=== PATIENT | female | born 1990 | race Caucasian/White ===

== ENCOUNTER 2017-12-21 12:26 | Emergency (ER) | payer MEDICAID, SELFPAY ==
[2017-12-21 12:31] VITALS: BP 128/87; PULSE 97; RESP 14; TEMP 36.7; O2SAT 100
--- NOTE | 2017-12-21 12:53 | DI.RAD_ITS ---
SYMPTOM/DIAGNOSIS: RIGHT SHOULDER INJURY RIGHT SHOULDER: 12/21 Five views were obtained. There is no evidence of a fracture or glenohumeral dislocation. There is a question of slight elevation of the clavicle from the acromion, correlation requested regarding a possibility of an A-C separation.
--- NOTE | 2017-12-21 14:01 | W.ED.GENAD ---
Discharge Plan Disposition Patient Disposition: HOME Condition: Good Discharge Details Chief Complaint: Orthopedic Clinical Impression: Acute pain of right shoulder due to trauma Primary Care Provider: Edenilson Boogie ED Provider: Michael Mercado Home Meds and New Rx's Prescriptions: Continue etonogestrel [Nexplanon] 68 MG implant 68 mg SQ ONCE Qty: 1 RF: 0 Discontinued metronidazole 500 MG tablet 500 mg PO BID Qty: 14 RF: 0 Discharge Instructions Instructions: Shoulder Pain (ED) Additional Instructions: Feel free to return to the emergency department as needed for new or worsening symptoms otherwise continue to take [id number]-[id number] pain medication as needed for discomfort and if not improving over the next couple weeks follow-up with orthopedist for reassessment Referrals: Vince Lema MD [ [facility] STAFF PHYSICIAN] - Andry Murray MD [ [facility] STAFF PHYSICIAN] - Faivo Champagne MD [ [facility] STAFF PHYSICIAN] - Discharge Data Discharge Date/Time-TO BE ENTERED AT DEPARTURE: 12/21/17 14:22 Medical Decision Making Patient presenting to the emergency department for complaint of right shoulder pain after fall. Patient reports that she fell 3 days ago and felt a popping sensation in her shoulder and has had pain since. Given that is not improved she is coming in for evaluation. Patient does have full range of motion of shoulder and tenderness to palpation of the proximal humerus. Radiological imaging was ordered for the shoulder and after review of imaging and speak with radiologist there is only a question of a mild AC joint separation but unsure if this is just normal patient anatomy. AC joint is not tender at all so doubt AC joint separation and more of shoulder sprain due to the fall. Patient was encouraged to use ibuprofen as needed for pain control and to follow-up with orthopedist if not improving over the next couple weeks. After discussion of diagnosis and plan of care patient has no further needs, questions, or concerns and states clear understanding to return to the emergency department for any worsening symptoms. HPI General Mode of arrival: ambulatory. Date/Time Provider Initiated Documentation: 12/21/17 12:52. Limitations to Documentation: no limitations. Information obtained by: patient. History of Present Illness 27 year old F presents to the emergency department with the chief complaint of Right shoulder pain after, described as moderate, with intensity rated at 5. Quality is described as aching, and is localized to the right and upper extremity. Patient started experiencing this day(s) (3) and it has been constant. No relieving factors improve symptom(s), Movement worsens symptoms . Patient notes no other symptoms.. Patient did receive the following treatments prior to arrival, none Related Data Home Medications Medication Instructions Recorded Confirmed etonogestrel [Nexplanon] 68 mg SQ ONCE #1 implant 05/29/17 Allergies Allergy/AdvReac Type Severity Reaction Status Date / Time No Known Allergies Allergy Unverified 11/04/17 14:41 General Stated Complaint: Orthopedic SYLVESTER: 4 Review of Systems Constitutional Denies body ache(s), Denies chills and Denies fever(s) Cardiovascular Denies chest pain and Denies dyspnea Respiratory Denies dyspnea Musculoskeletal Reports as per HPI and Reports arthralgias Integumentary/Breasts Denies rash Neurologic Denies confusion and Denies sensory deficit Psychiatric Denies confusion [facility] Family History Brother Alcohol abuse Mother Diabetes Father Essential hypertension Grandmother Breast cancer Maternal Aunt Breast cancer Medical History Abnormal Pap smear of cervix Nexplanon in place Social History Smoking/Tobacco Use Status: Former Tobacco Use Exam Const General: cooperative, no acute distress and not ill appearing Orientation: alert, awake and oriented x3 HENMT Mouth: moist mucous membranes Resp Effort & Inspection: normal respiratory effort, able to speak in complete sentences and no respiratory distress Auscultation: clear to auscultation bilaterally Cardio Rate: regular rate Rhythm: regular rhythm Heart Sounds: S1 normal and S2 normal Skin General skin exam: no rashes or lesions noted Neuro General: alert, awake, oriented x3, moves all extremities and no focal motor deficits Sensory Exam: no sensory deficits noted Extrem Right upper extremity: full ROM, normal capillary refill, shoulder/upper arm Details: tenderness Location: of the proximal humerus; not of the A-C joint, elbow/forearm Details: normal to inspection, wrist Details: normal to inspection and hand Details: normal to inspection Left upper extremity: normal to inspection Course Vital Signs Temperature 36.7 C 12/21/17 12:31 Pulse 97 H 12/21/17 12:31 Respiratory Rate 14 12/21/17 12:31 Blood Pressure 128/87 12/21/17 12:31 Pulse Oximetry 100 12/21/17 12:31 Temperature 36.7 C 12/21/17 12:31 Temperature Source Skin 12/21/17 12:31 Pulse 97 H 12/21/17 12:31 Respiratory Rate 14 12/21/17 12:31 Respiratory Effort 12/21/17 12:38 Blood Pressure 128/87 12/21/17 12:31 Blood Pressure Position Sitting 12/21/17 12:31 Pulse Oximetry 100 12/21/17 12:31 Oxygen Delivery Method Room Air 12/21/17 12:31 Oxygen Flow Rate 0 12/21/17 12:31 Pain Level 4 12/21/17 12:31 Comment 12/21/17 12:31 Lab/Test Results Lab/Test Results: POC- Test(urine) Negative
--- NOTE | 2017-12-21 14:04 | ED.GENADUL_ITS ---
Discharge Plan Disposition Patient Disposition: HOME Condition: Good Discharge Details Chief Complaint: Orthopedic Clinical Impression: Acute pain of right shoulder due to trauma Primary Care Provider: Edenilson Boogie ED Provider: Michael Mercado Home Meds and New Rx's Prescriptions: Continue etonogestrel [Nexplanon] 68 MG implant 68 mg SQ ONCE Qty: 1 RF: 0 Discontinued metronidazole 500 MG tablet 500 mg PO BID Qty: 14 RF: 0 Discharge Instructions Instructions: Shoulder Pain (ED) Additional Instructions: Feel free to return to the emergency department as needed for new or worsening symptoms otherwise continue to take [id number]-[id number] pain medication as needed for discomfort and if not improving over the next couple weeks follow-up with orthopedist for reassessment Referrals: Vince Lema MD [ [facility] STAFF PHYSICIAN] - Andry Murray MD [ [facility] STAFF PHYSICIAN] - Favio Champagne MD [ [facility] STAFF PHYSICIAN] - Discharge Data Discharge Date/Time-TO BE ENTERED AT DEPARTURE: 12/21/17 14:22 Medical Decision Making Patient presenting to the emergency department for complaint of right shoulder pain after fall. Patient reports that she fell 3 days ago and felt a popping sensation in her shoulder and has had pain since. Given that is not improved she is coming in for evaluation. Patient does have full range of motion of shoulder and tenderness to palpation of the proximal humerus. Radiological imaging was ordered for the shoulder and after review of imaging and speak with radiologist there is only a question of a mild AC joint separation but unsure if this is just normal patient anatomy. AC joint is not tender at all so doubt AC joint separation and more of shoulder sprain due to the fall. Patient was encouraged to use ibuprofen as needed for pain control and to follow-up with orthopedist if not improving over the next couple weeks. After discussion of diagnosis and plan of care patient has no further needs, questions, or concerns and states clear understanding to return to the emergency department for any worsening symptoms. HPI General Mode of arrival: ambulatory . Date/Time Provider Initiated Documentation: 12/21/17 12:52 . Limitations to Documentation: no limitations . Information obtained by: patient . History of Present Illness 27 year old F presents to the emergency department with the chief complaint of Right shoulder pain after, described as moderate, with intensity rated at 5. Quality is described as aching, and is localized to the right and upper extremity. Patient started experiencing this day(s) (3) and it has been constant. No relieving factors improve symptom(s), Movement worsens symptoms . Patient notes no other symptoms.. Patient did receive the following treatments prior to arrival, none Related Data Home Medications Medication Instructions Recorded Confirmed etonogestrel [Nexplanon] 68 mg SQ ONCE #1 implant 05/29/17 Allergies Allergy/AdvReac Type Severity Reaction Status Date / Time No Known Allergies Allergy Unverified 11/04/17 14:41 General Stated Complaint: Orthopedic SYLVESTER: 4 Review of Systems Constitutional Denies body ache(s), Denies chills and Denies fever(s) Cardiovascular Denies chest pain and Denies dyspnea Respiratory Denies dyspnea Musculoskeletal Reports as per HPI and Reports arthralgias Integumentary/Breasts Denies rash Neurologic Denies confusion and Denies sensory deficit Psychiatric Denies confusion [facility] Family History Brother Alcohol abuse Mother Diabetes Father Essential hypertension Grandmother Breast cancer Maternal Aunt Breast cancer Medical History Abnormal Pap smear of cervix Nexplanon in place Social History Smoking/Tobacco Use Status: Former Tobacco Use Exam Const General: cooperative, no acute distress and not ill appearing Orientation: alert, awake and oriented x3 HENMT Mouth: moist mucous membranes Resp Effort & Inspection: normal respiratory effort, able to speak in complete sentences and no respiratory distress Auscultation: clear to auscultation bilaterally Cardio Rate: regular rate Rhythm: regular rhythm Heart Sounds: S1 normal and S2 normal Skin General skin exam: no rashes or lesions noted Neuro General: alert, awake, oriented x3, moves all extremities and no focal motor deficits Sensory Exam: no sensory deficits noted Extrem Right upper extremity: full ROM, normal capillary refill, shoulder/upper arm Details: tenderness Location: of the proximal humerus; not of the A-C joint, elbow/forearm Details: normal to inspection, wrist Details: normal to inspection and hand Details: normal to inspection Left upper extremity: normal to inspection Course Vital Signs Temperature 36.7 C 12/21/17 12:31 Pulse 97 H 12/21/17 12:31 Respiratory Rate 14 12/21/17 12:31 Blood Pressure 128/87 12/21/17 12:31 Pulse Oximetry 100 12/21/17 12:31 Temperature 36.7 C 12/21/17 12:31 Temperature Source Skin 12/21/17 12:31 Pulse 97 H 12/21/17 12:31 Respiratory Rate 14 12/21/17 12:31 Respiratory Effort 12/21/17 12:38 Blood Pressure 128/87 12/21/17 12:31 Blood Pressure Position Sitting 12/21/17 12:31 Pulse Oximetry 100 12/21/17 12:31 Oxygen Delivery Method Room Air 12/21/17 12:31 Oxygen Flow Rate 0 12/21/17 12:31 Pain Level 4 12/21/17 12:31 Comment 12/21/17 12:31 Lab/Test Results Lab/Test Results: POC- Test(urine) Negative
== END 2017-12-21 14:22 | disposition home or self-care (01) ==
PROVIDERS: Emergency Provider Nurse Practitioner Family; PCP Specialist/Technologist Athletic Trainer
DX: M25.511 Pain in right shoulder (principal); W01.0XXA Fall on same level from slipping, tripping and stumbling without subsequent striking against object, initial encounter
CPT/HCPCS: 81025; 99283; 73030; 99282

== ENCOUNTER 2018-11-18 11:41 | Outpatient (REF) | payer MEDICAID, SELFPAY ==
[2018-11-20 11:30] LABS: Lyme Ab w Rflx to Lyme Confirm Negative
[2018-11-21 21:34] LABS: Anaplasma phagocytophilum Negative (Negative); B. miyamotoi PCR Negative (Negative); Babesia divergens/MO-1 Negative (Negative); Babesia duncani Negative (Negative); Babesia microti Negative (Negative); Ehrlichia chaffeensis Negative (Negative); Ehrlichia ewingii/canis Negative (Negative); Ehrlichia muris eauclairensis Negative (Negative)
== END 2018-11-18 12:01 ==
LOC: NCHCN 11:41
PROVIDERS: PCP Specialist/Technologist Athletic Trainer; Visit Provider Physician Assistant Medical
DX: M79.10 Myalgia, unspecified site (principal)
CPT/HCPCS: 87798; 86618

== ENCOUNTER 2019-08-18 11:52 | Outpatient (CLI) | payer MEDICAID, SELFPAY ==
[2019-08-18 12:03] LABS: Kit/Specimen SENT
[2019-08-18 13:16] LABS: Abs Immature Grans 0.02 k/cumm (0.0-0.09); Absolute Basophil Count 0.02 k/cumm (0.0-0.2); Absolute Eosinophil Count 0.11 k/cumm (0.0-0.7); Absolute Lymphocyte Count 1.81 k/cumm (1.2-3.4); Absolute Monocyte Count 0.45 k/cumm (0.11-0.7); Absolute Neutrophil Count 7.31 k/cumm (1.2-6.7); Basophils % 0.2; Eosinophils % 1.1; HCT 34.1 % (36.0-46.0); HGB 11.5 g/dL (12.0-15.5); Immature Grans % 0.2 %; Lymphocytes % 18.6; Mean Corp. HGB Concentration 33.7 g/dL (32.0-36.0); Mean Corpuscular Volume 91.9 fL (80-95); Mean Platelet Volume 10.6 fL (8.0-11.0); Monocytes % 4.6; Neutrophils % 75.3; Platelet Count 328 x1000/uL (130-400); RBC 3.71 m/cumm (4.00-5.20); RBC Distribution Width 12.9 % (11.7-14.6); White Blood Cell Count 9.72 k/cumm (4.4-10.8)
[2019-08-18 13:36] LABS: TSH (W/Ref FT4) 0.32 uIU/mL (0.36-3.74)
[2019-08-18 13:54] LABS: FREE T4 1.04 ng/dL (0.76-1.46)
[2019-08-19 11:15] LABS: Hepatitis C Ab w Rflx HCV PCR Negative (Negative)
[2019-08-19 11:17] LABS: Hepatitis B Surface Ag Negative (Negative)
[2019-08-19 11:18] LABS: HIV-1/2 Ag & Ab Screen Negative (Negative)
[2019-08-19 11:19] LABS: Rubella IgG Ab (UVM) Positive (See Note); Varicella IgG Antibody Positive (See Note)
[2019-08-20 11:18] LABS: Syphilis Total Ab w/Reflex Nonreactive (Nonreactive)
== END 2019-08-18 12:12 ==
PROVIDERS: PCP Specialist/Technologist Athletic Trainer; Visit Provider Advanced Practice Midwife
DX: Z34.91 Encounter for supervision of normal pregnancy, unspecified, first trimester (principal); Z3A.14 14 weeks gestation of pregnancy; Z36.89 Encounter for other specified antenatal screening
CPT/HCPCS: 86787; 86803; 86850; 86900; 86901; 87340; 87389; 84439; 84443; 85025; 86762; 86780

== ENCOUNTER 2019-08-18 11:56 | Outpatient (REF) | payer MEDICAID, SELFPAY ==
--- NOTE | 2019-08-18 10:40 | PAPFT_PTH ---
PATIENT: Martha Pinto LOC: [facility] U#:[id number] AGE/SX: 28/F ROOM: RE08/18/[address]: Vivi Gil CNM : 1990 BED: DIS: 08/18/2019 SPEC #: [id number] RECD: 08/18/19 12:57 STATUS: HOWARD RELakshmi #: [id number] LEMUEL: 08/18/19 10:[address]: Vivi Gil DEPT: [facility] Cytology RECD BY: Jhoana Gray ENTERED: 08/18/19 12:58 SP TYPE: PAPFT OTHR DR: Edenilson Boogie Tissues: 1 - CX/ENDOCX FOR PAP SMEARS Procedures: PAP THIN PREP/UVM Screening Comments: [id number]
[2019-08-18 14:28] LABS: *AMPHETAMINES SCREEN URINE Negative (Negative); *BARBITURATES SCREEN URINE Negative (Negative); *BENZODIAZEPINES SCREEN URINE Negative (Negative); Cannabinoids THC Negative (Negative); Cocaine Screen,Urine Negative (Negative); METHADONE URINE SCREEN Negative (Negative); OPIATES URINE SCREEN Negative (Negative)
[2019-08-18 14:29] LABS: Tricyclic Antidepressants Negative (Negative)
[2019-08-19 15:04] LABS: Chlamydia Result Negative (Negative); GC Result Negative (Negative)
[2019-08-25 11:49] LABS: Buprenorphine Negative; Norbuprenorphine Negative
== END 2019-08-18 12:16 ==
LOC: LBN 11:56
PROVIDERS: PCP Specialist/Technologist Athletic Trainer; Visit Provider Advanced Practice Midwife
DX: Z34.91 Encounter for supervision of normal pregnancy, unspecified, first trimester (principal); Z3A.14 14 weeks gestation of pregnancy; Z11.3 Encounter for screening for infections with a predominantly sexual mode of transmission; Z12.4 Encounter for screening for malignant neoplasm of cervix; Z11.51 Encounter for screening for human papillomavirus (HPV)
CPT/HCPCS: 80307; 87491; 87591; 88142; 87086

== ENCOUNTER 2019-09-16 01:40 | Outpatient (CLI) | payer MEDICAID, SELFPAY ==
--- NOTE | 2019-09-16 13:00 | DI.US_ITS ---
EXAM: US OB 2-3 TRIMESTER CLINICAL HISTORY: 18 wk anatomy survey,z3a.14 TECHNIQUE: Ultrasound performed using standard protocol. COMPARISON: US OB US 2-3 TRIMESTER TRANSABD*P from 05/03/2015 FINDINGS: Ob ultrasound was performed utilizing 2nd trimester protocol. biometry is consistent with gest ational age of 18 weeks 3 days and EDC of February 13. Placenta is posterior with no evidence of p lacenta previa. There is visually a normal quantity of amniotic fluid. anomaly screen is within normal limits as per the attached checklist. heart rate is 155 BPM. IMPRESSION: DATA REPOSITORY:
== END 2019-09-16 02:00 ==
PROVIDERS: PCP Physician Assistant Medical; Visit Provider Advanced Practice Midwife
DX: Z34.92 Encounter for supervision of normal pregnancy, unspecified, second trimester (principal); Z3A.18 18 weeks gestation of pregnancy
CPT/HCPCS: 76805

== ENCOUNTER 2019-11-23 11:30 | Outpatient (CLI) | payer MEDICAID, SELFPAY ==
--- NOTE | 2019-11-26 12:00 | DI.US_ITS ---
EXAM: US LOWER EXTREMITY VENOUS LT CLINICAL HISTORY: superficial varicosities homans neg yet sore. r/o dvt, Z34.90 SUPERVISION TECHNIQUE: Left lower extremity venous ultrasound performed using grayscale, color-flow, and spectra l Doppler analysis. COMPARISON: No exams were available for comparison FINDINGS: The left common femoral, femoral and popliteal veins demonstrate normal compressibility, augmentation , and color Doppler. The posterior tibial veins are patent. The saphenofemoral junction is unremarka ble. There is no evidence of a Glover cyst. The soft tissues are unremarkable. Multiple superficial varicosities in the proximal left calf. These all demonstrate compressibility and color flow. IMPRESSION: No DVT. DATA REPOSITORY:
== END 2019-11-23 11:50 ==
PROVIDERS: PCP Physician Assistant Medical; Visit Provider Advanced Practice Midwife
DX: I83.92 Asymptomatic varicose veins of left lower extremity (principal); Z34.90 Encounter for supervision of normal pregnancy, unspecified, unspecified trimester
CPT/HCPCS: 93971

== ENCOUNTER 2019-11-26 01:46 | Outpatient (CLI) | payer MEDICAID, SELFPAY ==
[2019-11-26 11:45] LABS: Glucose,1 Hr (Glucola) 120 mg/dL (80-140)
[2019-11-26 11:46] LABS: HCT 32.2 % (36.0-46.0); HGB 10.7 g/dL (11.2-15.7); MCHC 33.2 % (32.0-36.0); MCV 93.3 fL (80-95); MPV 10.3 fL (8.0-11.0); Platelet Count 273 10^3/uL (130-400); RBC 3.45 10^6/uL (3.93-5.22); RDW-SD 44.3 fL; WBC 9.82 10^3/uL (4.4-10.8)
== END 2019-11-26 02:06 ==
PROVIDERS: PCP Physician Assistant Medical; Visit Provider Advanced Practice Midwife
DX: Z67.91 Unspecified blood type, Rh negative (principal); Z34.90 Encounter for supervision of normal pregnancy, unspecified, unspecified trimester; O26.899 Other specified pregnancy related conditions, unspecified trimester
CPT/HCPCS: 36415; 82950; 85027; 86850; 90384

== ENCOUNTER 2020-01-26 15:54 | Outpatient (REF) | payer MEDICAID, SELFPAY ==
[2020-01-26 22:04] LABS: *AMPHETAMINES SCREEN URINE Negative (Negative); *BARBITURATES SCREEN URINE Negative (Negative); *BENZODIAZEPINES SCREEN URINE Negative (Negative); Cannabinoids THC POSITIVE (Negative); Cocaine Screen,Urine Negative (Negative); METHADONE URINE SCREEN Negative (Negative); OPIATES URINE SCREEN Negative (Negative)
[2020-01-26 22:05] LABS: Tricyclic Antidepressants Negative (Negative)
[2020-02-03 11:47] LABS: Buprenorphine Negative; Norbuprenorphine Negative
== END 2020-01-26 16:14 ==
LOC: LBN 15:54
PROVIDERS: PCP Physician Assistant Medical; Visit Provider Advanced Practice Midwife
DX: Z34.93 Encounter for supervision of normal pregnancy, unspecified, third trimester (principal)
CPT/HCPCS: 80307; 80338; 87081

== ENCOUNTER 2020-02-14 07:01 | Inpatient (IN) | payer MEDICAID, SELFPAY ==
[2020-02-14] VITALS (11 sets, daily range): BP systolic 119–137; BP diastolic 58–93; PULSE 66–87; RESP 14–16; TEMP 37.1–37.4; O2SAT 98
--- NOTE | 2020-02-14 08:43 | HPE_ITS ---
Date of service: 02/14/20 Time of Service: 08:46 Assessment and Plan Assessment and plan (1) Spontaneous onset of labor: Status: Acute Assessment and plan: Admit to [facility] Dr. John was called as I was en route and she was fully dilated. He ruptured her membranes prior to my arrival. Martha was repositioned on her right side. Anticipate imminent delivery. Covid- 19 test. Anticipate . OB-HPI Labor/Delivery History of Present Illness Reason for Visit: TERM LABOR RULE OUT Chief Complaint: Uterine Contractions. GAGE Calculator Estimated Delivery Date Method Current WG Current Estimate 02/16/20 Ultrasound #1 39w 5d Other Estimates 02/22/20 LMP (Certain) 38w 6d Comments: Strong regular contractions at home. presents in active labor and fully dilated with bulging membranes. History of Present Expected Delivery Route/Plan - CNM FOB/boyfriend - Tal Huff (2nd child together, has 1 other son) BG GBS Negative Would like to try to deliver in the tub. Specific Issues/Plan 1. Desires Froid, drawn 08/17 1a. 08/25/19 Froid risk low x3 declined gender. Enc to decide upon afp by nv. al 2. Known CF carrier screen negative 3. Hx LEEP 2015, last PAP 2017 ASCUS w/BV+, HPV neg, PAP done at intial OB 08/17 4. 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 Chronic tail-bone pain 6. Rh neg, RhoGam @ 28 wks done 11/26/19 7. 01/07/20: met with l/c prior to this visit. al 8. Usg for r/o DVT of l leg neg. al 9. History of marijuana use - POSC done 02/01 10. Smoker - quit early . 11. heart burn - prilosec escribed 02/01 [facility] Medical History Abnormal Pap smear of cervix 03/05/16 ASCUS - cannot r/o HGSIL. 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 04/26/16 LEEP: CIN2 clear margins. 05/2017. ASCUS. Neg HPV. rpt pap in 2020. Contraception Stopped Nexplanon 04/25 BTB. 10/2018 NuvaRing. Marijuana use Tobacco use 1Pack/week. Family History Brother Alcohol abuse Mother Diabetes Father Essential hypertension Grandmother Breast cancer Maternal Aunt Breast cancer Social History (Updated 11/06/18 @ 20:42 by Destiny Banerjee MD) Smoking/Tobacco Use Status: Current every day Tobacco Type: cigarettes Quit status: has quit before Smoking risk assessment performed?: Yes Alcohol Intake: current Alcohol Intake frequency: 0-2 drinks per day Alcohol type: beer Counseling given: Yes (Reviewed current recommendations regarding limits of alcohol for women) Details: Patient does not feel that she has an issue with alcohol. 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 8lb 9oz. History History 2 Para 1 Hx # Term Pregnancies 1 Multiple births 0 Hx # Pregnancies 0 Ectopic pregnancies 0 AB induced 0 Hx Number of Living Children 1 AB spontaneous 0 Past Pregnancies Del. Date GA/Weeks # Outcome Route Wgt Sex Labor Lgth Anesthes ia Location [facility] 09/26/15 41 No Successful vaginal 8 lb 9 oz Male 6 hours local [facility] Delivery Date: 09/26/15 back labor, Yue Witt Medyousif Home Medications and Allergies Home Medications Medication Instructions Recorded Confirmed Type vits,calcium no.78-iron 1 tab PO DAILY #90 tab 06/30/19 02/09/20 Rx fumarate-folic acid 29 mg-1 mg tablet ferrous sulfate 325 mg (65 mg 325 mg PO DAILY #60 tab 11/26/19 02/09/20 Rx iron) tablet omeprazole magnesium 20 mg 20 mg PO DAILY #14 tab 02/02/20 02/09/20 Rx tablet,delayed release Allergies Allergy/AdvReac Type Severity Reaction Status Date / Time No Known Allergies Allergy Unverified 02/09/20 14:46 Exam Physical Exam Vital signs: Pulse BP 71 135/88 02/14/20 08:30 02/14/20 08:30 Vital Signs Reviewed: Yes Constitutional Constitutional: mild distress Detailed Labor and Delivery Exam Dilation: 10 station: +2 Cervix position: anterior Consistency: soft Ricketts Score: Cervical Points Exam 0 1 2 3 Dilation Closed 1-2cm 3-4 cm 5-6cm Effacement 0-30% 40-50% 60-70% 80% Consistency Firm Medium Soft Station -3 -2 -1,0 +1,+2 Position Posterior Mid Anterior Amniotic Membrane Status: Ruptured (ruptured by Dr. John for clear fluidwho was called due to precipitous delivery) Amniotic Fluid: Clear Fetus A Heart Rate Baseline: 120 Monitor Accelerations: 15 X 15 Monitor Decelerations: Variable Variability: Moderate (6-25 BPM) Presentation: Vertex Categories: Category I Est. Weight: 8 Date of Membrane Rupture: 02/14/20 Time of Membrane Rupture: 07:45 Risk Assessment Risk for Shoulder Dystocia Historical/Initial OB: NEGATIVE FOR: Pelvic Abnormality, Pre- BMI>30, Previous Shoulder Dystocia or Previous Macrosomia Delivery Plan @ 36wks: spont labor, Risk for Pre-Eclampsia Yes, if one or more: NEGATIVE FOR: Hx Pre-E/Gest HTN, Chronic HTN, Multiple Gestation, Pre-gestational DM, Renal Disease, Systemic Lupus or APA Syndrome Yes, if 2 or more: NEGATIVE FOR: Nulliparity, Age>= 35 yrs, >10yr btwn pregnancies, BMI>30, ethinicty, Mother/Sister w/ Pre-E or Previous IUGR Risk for Post- Hemorrhage Initial: NEGATIVE FOR: Multiple Gestation, Previous PPH, Known Clotting Deficiency, Grand Multiparity or Anticoagulation Risks Reviewed Risks Reviewed Upon Admission: Yes
--- NOTE | 2020-02-14 08:55 | W.OBDELIVERY ---
Date of service: 02/14/20 Time of Service: 08:55 OB Labor/ Delivery Information Baby A Delivery Delivery Method: Spontaneaous Presentation: Cephalic Cephalic Position: Vertex Vertex Position: Left Occipital Anterior Cord Description-Baby A: 3 Vessels Amniotic Fluid: Clear Estimated Blood Loss: 250 Delivery Outcome: Liveborn Transferred: Remains with Mother Note: FHTs 120s during first stage of labor. FHTs 120s iin second stage. Arrived at 0730 at full dilation with an urge to push. Dr. John was called to [facility] room as I was en route. Dr. John ruptured her membranes for clear fluid. I arrived at 0745She turned to her right side and began bearing down. There was a spontaneous delivery of female infant delivered in BRODIE position. A loose cord was noted around the body and the baby was delivered through it. The Baby was placed on mother's abdomen and dried and stimulated. Spontaneous cry. Cord was clamped and cut by the father of the baby. The placenta delivered spontaneously and appears to by intact with a three vessel cord. Pitocin 10 Units IM was administered after delivery of the placenta. The baby did breastfeed. After delivery, Mother and baby and father of the baby were stable and bonding well in the delivery room. Labor/Delivery Information Steroids Given: None Reason Steroids Not Administered: N/A Group Beta Strep: Negative Antibiotics Administered: No Rubella Status: Immune Blood Type: A- Varicella Immunity: Immune Born En Route: No Maternal Complications: Precipitous Labor(<3hrs) Stages of Labor ROM Baby A: 02/14/20 ROM Baby A: 07:45
[2020-02-14 09:14] LABS: HCT 36.4 % (36.0-46.0); HGB 12.5 g/dL (11.2-15.7); MCH 31.7 pg (27.0-33.0); MCHC 34.3 % (32.0-36.0); MCV 92.4 fL (80-95); MPV 10.8 fL (8.0-11.0); Platelet Count 241 10^3/uL (130-400); RBC 3.94 10^6/uL (3.93-5.22); RDW 13.2 % (11.7-14.6); WBC 16.56 10^3/uL (4.4-10.8)
[2020-02-14] MEDS: miSOPROStol 200 MCG TAB 400 MCG SL (09:17)
[2020-02-14] MEDS: Oxytocin 10 UNITS/ML VIAL IM (09:17)
[2020-02-14] MEDS: Acetaminophen 325 MG TAB 650 MG PO ×2 (14:11→19:33)
[2020-02-14] MEDS: Ibuprofen 600 MG TAB PO ×2 (14:12→19:33)
[2020-02-15 00:40] VITALS: BP 121/72; PULSE 78; RESP 16; TEMP 36.8; O2SAT 98
[2020-02-15] MEDS: Acetaminophen 325 MG TAB 650 MG PO (05:45)
[2020-02-15] MEDS: Ibuprofen 600 MG TAB PO (05:45)
[2020-02-15 08:00] VITALS: BP 111/72; PULSE 71; RESP 14; TEMP 36.7
--- NOTE | 2020-02-15 09:40 | W.PM.OBDISCH ---
Date of service: 02/15/20 Time of Service: 09:41 DS: Diagnosis Discharge Diagnosis (1) Vaginal delivery: Status: Acute Asessment and Plan: Caring for baby independently. Pain is managed well with oral analgesics. Voiding without difficulty. well. Desires discharge at 24 hours. A - stable mother and baby , Post day 1 P - Discharge to home . Routine post instructions. [facility] Planning nexplanon for contraception Discharge Plan Discharge Details Reason For Visit: TERM LABOR RULE OUT Admit Date/Time: 02/14/20 07:01 Admit Provider: Yue Rodriguez Attending Provider: Yue Rodriguez Primary Care Provider: Monse Grant Home Meds and New Rx's Prescriptions: No Action PreTAB 29-1 mg tablet 1 tab PO DAILY Qty: 90 RF: 4 omeprazole magnesium [Prilosec OTC] 20 mg tablet,delayed release (DR/EC) 20 mg PO DAILY Qty: 14 RF: 1 ferrous sulfate [Feosol] 325 mg (65 mg iron) tablet 325 mg PO DAILY Qty: 60 RF: 1 Discharge Instructions Activity:: Activity as Tolerated Activity:: Activity as Tolerated Equipment/Supplies:: No Equipment Needed Diet:: As Tolerated OB:DS Summary Summary Vaginal Delivery Method: Spontaneaous Episiotomy Description: None Laceration Description: None Laceration Extension: N/A Contraception Discussed Contraception Discussed: Yes Contraceptive Plan: Levonorgestrel Implant, Gender-Baby A: Female weight: 7 lb 2.817 oz Disposition of Baby A: Home Gender-Baby B: Female Status at Discharge Functional status at discharge: independent ambulation Overall status at discharge: patient is back to baseline Mental Status: mental status grossly normal Speech and Movement: speech and movement normal Mood: congruent mood Affect: normal affect Exam Physical Exam Vital signs: Temp Pulse Resp BP Pulse Ox 98.1 F 71 14 111/72 98 02/15/20 08:00 02/15/20 08:00 02/15/20 08:00 02/15/20 08:00 02/15/20 00:40 Constitutional Constitutional: no acute distress Neck Exam Neck Exam: Normal Respiratory Exam Respiratory Exam: Normal Cardiovascular Exam Cardiovascular Exam: Normal Abdominal Exam Abdomen: Tender (slightly tender. pain relieved with motrin) Fundal Exam Fundus: Below Umbilicus Rectal Exam Rectal Exam: Normal Extremities Exam Extremity Exam: Normal (intact perineum) Skin Exam Skin Exam: Normal Psychiatric Exam Psychiatric Exam: Normal [facility] Medical History Abnormal Pap smear of cervix 03/05/16 ASCUS - cannot r/o HGSIL. 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 04/26/16 LEEP: CIN2 clear margins. 05/2017. ASCUS. Neg HPV. rpt pap in 2020. Contraception Stopped Nexplanon 04/25 BTB. 10/2018 NuvaRing. Marijuana use Tobacco use 1Pack/week. Family History Brother Alcohol abuse Mother Diabetes Father Essential hypertension Grandmother Breast cancer Maternal Aunt Breast cancer Social History (Updated 11/06/18 @ 20:42 by Destiny Banerjee MD) Smoking/Tobacco Use Status: Former Tobacco Use Quit Date: 05/23/19 Tobacco: How many years used: 13 Quit status: has quit before Smoking risk assessment performed?: Yes Alcohol Intake: current Alcohol Intake frequency: 0-2 drinks per day Alcohol type: beer Counseling given: Yes (Reviewed current recommendations regarding limits of alcohol for women) Details: Patient does not feel that she has an issue with alcohol. 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 8lb 9oz. History History 2 Para 1 Hx # Term Pregnancies 1 Multiple births 0 Hx # Pregnancies 0 Ectopic pregnancies 0 AB induced 0 Hx Number of Living Children 1 AB spontaneous 0 Past Pregnancies Del. Date GA/Weeks # Outcome Route Wgt Sex Labor Lgth Anesthesia Location Prov Complic 09/26/15 41 No Successful vaginal 8 lb 9 oz Male 6 hours local [facility] Delivery Date: 09/26/15 back labor, Yue Witt DS: Data Vitals/I&O Vitals and I&O: Vital Signs Temperature 98.1 F 02/15/20 08:00 Pulse 71 02/15/20 08:00 Pulse Rhythm Regular 02/15/20 08:00 Respiratory Rate 14 02/15/20 08:00 Respiratory Depth Normal 02/15/20 00:40 Blood Pressure 111/72 02/15/20 08:00 Blood Pressure Mean 85 02/15/20 08:00 Pulse Oximetry 98 02/15/20 00:40 Oxygen Delivery Method Room Air 02/14/20 13:47 Oxygen Flow Rate 0 02/14/20 13:47 Pain Level 6 02/14/20 19:33 Comment 02/14/20 17:06 Intake & Output 02/14/20 02/14/20 02/15/20 11:59 23:59 11:59 Weight 6.032 oz Other: Urine Color Yellow Data Completed and Pending Labs on day of discharge: Labs from last 24 hours 02/14/20 02/14/20 02/14/20 11:11 09:00 09:00 COVID-19 PCR Nasopharyn COVID-19 PCR Ref Test Perform Site Patient ABO/Rh Cancelled A Negative Antibody Screen Positive Antibody Identification Anti-D Direct Antiglob Test Cancelled Screen Negative Unit Expiration Date 08/06/21 Product Lot # [id number] 02/14/20 08:55 COVID-19 PCR Pending Nasopharyn COVID-19 PCR Pending Ref Test Perform Site Pending Patient ABO/Rh Antibody Screen Antibody Identification Direct Antiglob Test Screen Unit Expiration Date Product Lot #
[2020-02-15] MEDS: Docusate Sodium 100 MG CAP PO (10:26)
--- NOTE | 2020-02-15 12:09 | DSE_ITS ---
Date of service: 02/15/20 Time of Service: 12:09 DS: Diagnosis Discharge Diagnosis (1) Vaginal delivery: Status: Acute Discharge Plan Disposition Patient Disposition: HOME Condition: Good Discharge Details Reason For Visit: TERM LABOR RULE OUT Admit Date/Time: 02/14/20 07:01 Admit Provider: Yue Rodriguez Attending Provider: Yue Rodriguez Primary Care Provider: Monse Grant Home Meds and New Rx's Prescriptions: No Action PreTAB 29-1 mg tablet 1 tab PO DAILY Qty: 90 RF: 4 omeprazole magnesium [Prilosec OTC] 20 mg tablet,delayed release (DR/EC) 20 mg PO DAILY Qty: 14 RF: 1 ferrous sulfate [Feosol] 325 mg (65 mg iron) tablet 325 mg PO DAILY Qty: 60 RF: 1 Discharge Instructions Stand Alone Forms: BC Post Vaginal Deliver Activity:: Activity as Tolerated Equipment/Supplies:: No Equipment Needed Diet:: As Tolerated Discharge Orders Discharge Orders: Discharge Order (Routine); Ordered 02/15/20 Ordered By: Yue Rodriguez Discharge Data Discharge Date/Time-TO BE ENTERED AT DEPARTURE: 02/15/20 11:30 OB:DS Summary Summary Vaginal Delivery Method: Spontaneaous Episiotomy Description: None Laceration Description: None Laceration Extension: N/A Contraception Discussed Contraception Discussed: Yes, [place] Infant Gender-Baby A: Female weight: 7 lb 2.817 oz Gender-Baby B: Female Exam Physical Exam Vital signs: Temp Pulse Resp BP Pulse Ox 98.1 F 71 14 111/72 98 02/15/20 08:00 02/15/20 08:00 02/15/20 08:00 02/15/20 08:00 02/15/20 00:40 [facility] Medical History Abnormal Pap smear of cervix 03/05/16 ASCUS - cannot r/o HGSIL. 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 04/26/16 LEEP: CIN2 clear margins. 05/2017. ASCUS. Neg HPV. rpt pap in 2020. Contraception Stopped Nexplanon 04/25 BTB. 10/2018 NuvaRing. Marijuana use Tobacco use 1Pack/week. Family History Brother Alcohol abuse Mother Diabetes Father Essential hypertension Grandmother Breast cancer Maternal Aunt Breast cancer Social History (Updated 11/06/18 @ 20:42 by Destiny Banerjee MD) Smoking/Tobacco Use Status: Former Tobacco Use Quit Date: 05/23/19 Tobacco: How many years used: 13 Quit status: has quit before Smoking risk assessment performed?: Yes Alcohol Intake: current Alcohol Intake frequency: 0-2 drinks per day Alcohol type: beer Counseling given: Yes (Reviewed current recommendations regarding limits of alcohol for women) Details: Patient does not feel that she has an issue with alcohol. 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 8lb 9oz. History History 2 Para 1 Hx # Term Pregnancies 1 Multiple births 0 Hx # Pregnancies 0 Ectopic pregnancies 0 AB induced 0 Hx Number of Living Children 1 AB spontaneous 0 Past Pregnancies Del. Date GA/Weeks # Outcome Route Wgt Sex Labor Lgth Anesthes ia Location Prov Complic 09/26/15 41 No Successful vaginal 8 lb 9 oz Male 6 hours local [facility] Delivery Date: 09/26/15 back labor, Yue Witt DS: Data Vitals/I&O Vitals and I&O: Vital Signs Temperature 98.1 F 02/15/20 08:00 Pulse 71 02/15/20 08:00 Pulse Rhythm Regular 02/15/20 08:00 Respiratory Rate 14 02/15/20 08:00 Respiratory Depth Normal 02/15/20 00:40 Blood Pressure 111/72 02/15/20 08:00 Blood Pressure Mean 85 02/15/20 08:00 Pulse Oximetry 98 02/15/20 00:40 Oxygen Delivery Method Room Air 02/14/20 13:47 Oxygen Flow Rate 0 02/14/20 13:47 Pain Level 6 02/14/20 19:33 Comment 02/14/20 17:06 Intake & Output 02/14/20 02/15/20 02/15/20 23:59 11:59 23:59 Weight 6.032 oz Other: Urine Color Yellow Data Completed and Pending Labs on day of discharge: Labs from last 24 hours 02/14/20 02/14/20 09:00 09:00 Patient ABO/Rh A Negative Antibody Screen Positive Antibody Identification Anti-D Screen Negative Unit Expiration Date 08/06/21 Product Lot # [id number]
[2020-02-16 17:04] LABS: COVID-19 RT-PCR UVMMC Result Negative (Negative)
== END 2020-02-15 11:30 | disposition home or self-care (01) | DRG 807 ==
PROVIDERS: Admitting Provider Advanced Practice Midwife; PCP Nurse Practitioner Family; Visit Provider Advanced Practice Midwife
DX: O62.3 Precipitate labor (principal); Z37.0 Single live birth; O69.89X0 Labor and delivery complicated by other cord complications, not applicable or unspecified; Z11.59 Encounter for screening for other viral diseases; Z3A.39 39 weeks gestation of pregnancy; Z67.11 Type A blood, Rh negative
CPT/HCPCS: 36415; 85027; 85461; 86850; 86900; 86901; 90384; U0003; 86870; 86880; J2590; J2790

== ENCOUNTER 2021-03-30 14:37 | Outpatient (REF) | payer MEDICAID, SELFPAY ==
[2021-03-31 18:51] LABS: COVID-19 RT-PCR UVMMC Result Positive (Negative)
== END 2021-03-30 14:38 | disposition home or self-care (01) ==
LOC: NCHCN 14:37
PROVIDERS: PCP Physician Assistant Medical; Visit Provider Nurse Practitioner Family
DX: Z20.822 Contact with and (suspected) exposure to COVID-19 (principal); R05.8 Other specified cough
CPT/HCPCS: U0003

== ENCOUNTER 2021-11-21 12:38 | Outpatient (REF) | payer MEDICAID, SELFPAY ==
--- NOTE | 2021-11-21 11:20 | PAPFT_PTH ---
PATIENT: Martha Pinto LOC: [facility] U#:[id number] AGE/SX: 31/F ROOM: RE11/21/[address]: Sivan Seymour NP : 1990 BED: DIS: 11/21/2021 SPEC #: [id number] RECD: 11/21/21 13:10 STATUS: HOWARD REQ #: [id number] LEMUEL: 11/21/21 11:[address]: Sivan Seymour NP DEPT: [facility] Cytology RECD BY: Jhoana Gray ENTERED: 11/21/21 13:11 SP TYPE: PAPFT OTHR DR: Monse Grant Tissues: 1 - CX/ENDOCX FOR PAP SMEARS Procedures: PAP THIN PREP/UVM Screening HPV DNA PROBE Comments: [id number]
--- OUTSIDE RECORDS SUMMARY | 2021-11-21 12:41 | XMS_ITS | Clinical Summary ---
:1990 Author Organization [facility] Address [address] [place] [address] Care Team Providers Name Role Phone Edenilson Boogie PA-C Primary Care Provider [phone] Social History Tobacco Use Types Packs/Day Years Used Date Never Assessed Sex Assigned at Date Recorded Not on file Plan of Treatment Health Maintenance Due Date Last Done Comments COVID-19 Vaccine (1) 1994 Hepatitis C Screen Completed 08/18/2019 Care Teams Hip Hop Performers Relationship Specialty Start Date End Date Edenilson Boogie PA-C PCP - General 04/30/16
--- OUTSIDE RECORDS SUMMARY | 2021-11-21 12:41 | XMS_ITS | Encounter Summary ---
:[address] [facility] Address [address] [place] [address] Care Team Providers Name Role Phone Unknown, Provider Primary Care Provider Encounter Details Date Type Department Care Team Description 04/26/2016 Hospital Encounter [facility]- Karyn Unknown, Provider, [facility] [address] [facility] [phone] [place] [address] (Work) [phone] Social History Tobacco Use Types Packs/Day Years Used Date Never Assessed Sex Assigned at Date Recorded Not on file documented as of this encounter Discharge Disposition Disposition Code Departure Means Destination Home or Self Long-Term documented in this encounter Plan of Treatment Not on filedocumented as of this encounter Visit Diagnoses Not on filedocumented in this encounter Care Teams Grocery Associate Relationship Specialty Start Date End Date Unknown, Provider, PCP - General 07/24/11 documented as of this encounter
--- OUTSIDE RECORDS SUMMARY | 2021-11-21 12:41 | XMS_ITS | Encounter Summary ---
:[address] [facility] Address [address] [place] [address] Care Team Providers Name Role Phone Edenilson Boogie PA-C Primary Care Provider [phone] Encounter Details Date Type Department Care Team Description 03/30/2021 Lab Requisition [facility] Outr Resulting Lab, Pathology & Laboratory Provider [facility] [address] [place] [address] Social History Tobacco Use Types Packs/Day Years Used Date Never Assessed Sex Assigned at Date Recorded Not on file documented as of this encounter Plan of Treatment Not on filedocumented as of this encounter Procedures Procedure Name Priority Date/Time Associated Diagnosis Comme nts COVID-19 TEST [facility] Today 03/30/2021 10:00 LAB PCR EST COVID-19 TESTING Routine 03/30/2021 10:00 Results for this EST procedure are i n the results section. documented in this encounter Results COVID-19 TEST [facility] LAB PCR (03/30/2021 10:00 EST) Specimen Swab Performing Organization Address City/State/ZIP Code Phon e Number [facility] [address] [place] [address] SERVICES (ABNORMAL) COVID-19 TESTING (03/30/2021 10:00 EST) COVID-19 rt-PCR Positive (AA) Negative [facility] Result Comment: [facility] This test has not been FDA c leared or approved. This test has been authorized by FDA under an EUA for use by authorized laboratories. This test has been authorized only for detection of nucleic acid fro SERVICES m 2018-nCo, not for any oth er viruses or pathogens. This test is only authorized for the duration of the declaration that circumstances exist justifying the authorization of emergency use of in vitro d iagnostic tests for detectio n and/or diagnosis of 2019-nCoV under section 564(b)(1) of Act, 21 U.S.C ?? 360bbb-3(b) (1), unless the authorization is terminated or revoked sooner. This test was developed and its performance characteristics determined by [facility]. It has not been cleared or approved by the US Food and Drug Administration. FDA does not require this test to go through premarket FDA review. This t est is used for clinical purposes. It should not be regarded as investigational or for research. This laboratory is certified under the Clinical Laboratory Improvement Amendm ents (CLIA) as qualified to perform high complexity clinical laboratory testing. This test is based on the CD C COVID-19 Emergency Use Authorization (EUA) assay, with minor modification as defined by the FDA Performed on the [employer] 7 Pro RT-PCR System. Performing Lab [facility] Lab [facility] SERVICES Specimen Swab Performing Organization Address City/State/[facility] Code Phon e Number [facility] [address] [place] [address] SERVICES documented in this encounter Visit Diagnoses Not on filedocumented in this encounter Additional Health Concerns Infection Onset Date Last Indicated Resolved Time COVID-19 03/30/2021 03/30/2021 04/19/2021 22:15 EST documented as of this encounter Care Teams Wireless Store Manager Relationship Specialty Start Date End Date Edenilson Boogie PA-C PCP - General 04/30/16 documented as of this encounter
--- OUTSIDE RECORDS SUMMARY | 2021-11-21 12:41 | XMS_ITS | Encounter Summary ---
:1990 Author Organization [facility] Address [address] [place] [address] Care Team Providers Name Role Phone Unknown, Provider Primary Care Provider Encounter Details Date Type Department Care Team Description 04/26/2016 Results Only [facility]- Destiny Moore MD [phone] [facility] [facility] [place], [place] [id number] (Wo rk) Social History Tobacco Use Types Packs/Day Years Used Date Never Assessed Sex Assigned at Date Recorded Not on file documented as of this encounter Plan of Treatment Not on filedocumented as of this encounter Procedures Procedure Name Priority Date/Time Associated Diagnosis Comme [facility] SURGICAL PATHOLOGY Routine 04/26/2016 8:59 EST Re sults for this procedure are i n the results section. documented in this encounter Results SURGICAL PATHOLOGY (04/26/2016 8:59 EST) Pathology SURGICAL PATHOLOGY REPORT [facility] Report: Reports generated via electronic interface conta in original data; [facility] however they are lacking the format of the original re port. SERVICES Caution should be taken when reading/interpreting unfo rmatted reports. Name: ? MORA PINTO N ? Accession #: ? [id number] ? : ? 1990 (Age: 25 ) ??F ? Collect Date: ? 04/26/2016 ? Location: ? [facility] ? Receive Date: ? 7 ? Provider: DESTINY KIM MD Copy to: ANDER NIETO PAC ? Final Pathologic Diagnosis: CERVIX, LOOP ELECTROCAUTERY EXCISION PROCEDURE: - High-grade squamous intraepithelial lesion (BENNY II). See comment. - Margins negative for involvement by squamous intraep ithelial lesion. - Acute and chronic cervicitis. Comment: Html Web Developer slides of this case were reviewed at [facility] intradepartmental consultation conference. ?? Document reviewed and electronically signed by: KATIE TEE MD Report ??Date: 05/01/2016 15:21 By the signature above, the attending physician certif ies that he/she has personally conducted a gross and/or microscopic examin ation of the described specimens and rendered or confirmed the above diagnosi s. Specimen(s) Received: Small piece 11 o'clock position to 7 o'clock, large pi doris 12 o'clock to 6 o'clock Clinical History: BENNY II on colpo directed biopsy Gross Description: ? Received in formalin labelled with proper patient identification (initials K, R) and endocx are two i rregular fragments of cervix (1.2 x 0.5 x 0.3 cm and 2.3 x 1.4 x 0.8 cm). The fra gments are oriented as per the requisition: smaller piece is 7 o'clock to 11 o'clock and the larger piece is 12 o'clock to 6 o'clock. Both tissues are covered by smo oth pink-burciaga ectocervical mucosa. The endocervical margin is not grossly identifiable on the smaller fragment of tissue. The ectocervical mar gins are inked black, and the endocervical margin on the larger tissue is inked b lue. The larger tissue is radially sectioned, while the smaller tissue is serially sectioned . The specimens are entirely submitted as follows: BLOCK CHAO 1-2- ??smaller tissue 3-4- ??larger fragment from 12 o'clock to 3 o'clock 5-6- ??larger fragment from 3 o'clock to 6 o'clock AMY Flanagan (ASCP) 04/29/2016 11:29 AM End of Report Specimen Performing Organization Address City/State/ZIP Code Phon e Number [facility] [address] [place] [address] SERVICES documented in this encounter Visit Diagnoses Not on filedocumented in this encounter Care Teams General Forecaster Relationship Specialty Start Date End Date Unknown, Provider, PCP - General 07/24/11 04/29/16 documented as of this encounter
--- OUTSIDE RECORDS SUMMARY | 2021-11-21 12:41 | XMS_ITS ---
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) Problem Headache R51 Active 08736956 Problem Heel pain M79.673 Active Problem Hearing loss, right H91.91 Active 90135471 Problem Former smoker Z87.891 Active 480716 6 Problem Z33.1 Active 02971780 Problem Foot pain M79.673 Active 67690370 ALLERGIES Substance Reaction Event Type Date Status Environmental Unknown Non Drug Allergy Sep, Active ENCOUNTERS Encounter Location Date Diagnosis [facility], [place] [address] [facility], [place] [address] [facility] Sep, [place] [address] M72.2 ; Post erior tibial tendinitis, left leg M76.822 ; Posterior tibial tendinitis, right leg M76.82 1 ; Ligamentous laxi ty of left ankle M24.272 ; Ligamentous laxity of right ankle M24.271 ; Ligamentous la xity of left foot M24.275 and Ligamentous laxity of right foot M24.274 [facility] [address] [facility] [address] Aug, [place] [address] M72.2 ; Post erior tibial tendinitis, left leg M76.822 ; Posterior tibial tendinitis, right leg M76.82 1 ; Ligamentous laxi ty of left ankle M24.272 ; Ligamentous laxity of right ankle M24.271 ; Ligamentous la xity of left foot M24.275 and Ligamentous laxity of right foot M24.274 [facility] [address] [facility], [place] [address] [facility] [address] [facility], [place] [address] IMMUNIZATIONS No Known Immunizations SOCIAL HISTORY Qualifiers Date Former Smoker REASON FOR REFERRAL FUNCTIONAL STATUS PLAN OF CARE Activity Details Follow Up follow-up when orthotics in Reason: VITAL SIGNS Height 64 in 2019-09-22 Height 64 in 2019-08-25 Weight 156.2 lbs 2019-09-22 Weight 154.6 lbs 2019-08-25 BMI 26.81 kg/m2 2019-09-22 BMI 26.53 kg/m2 2019-08-25 Temperature 98.1 degrees Fahrenheit 2019-09-22 Temperature 98.1 degrees Fahrenheit 2019-08-25 Heart Rate 79 /min 2019-09-22 Heart Rate 90 /min 2019-08-25 Respiratory Rate 16 /min 2019-09-22 Respiratory Rate 16 /min 2019-08-25 Oximetry 99 % 2019-09-22 Oximetry 99 % 2019-08-25 Blood pressure systolic 98 mm Hg 2019-09-22 Blood pressure diastolic 56 mm Hg 2019-09-22 MEDICATIONS Medication Instructions Dosage Frequency Start End Date Duration Stat us Date Orally Once a day 1 tablet 24h 30 day(s) Ac tive Vitamin 27-0.8 MG PROCEDURES Procedure Date Ordered Result Body Site CASTING/STRAPPING PROCEDURE September 22, 2019 FOOT INSERT REM EACH September 22, 2019 RESULTS No Results REASON FOR VISIT orthotic dispense , orthotic molds mailed 7/2KG, orthotics casting, Last seen by [facility]R on 08/25/2019 forjorgeel foot pain -[facility] , Orthotics are 100% covered by insurance -[facility] , pt state that she is here for orthotics casting today , pt states that her foot pain is a little better , foot and pain referral done, Referred by Josette Rodriguez for foot/heel pain , pt states that she is here for bilateral foot pain , pt states that she is having heel pain that she self diagnosed as plantar fasciitis , pt states she has pain mostly in the morning, (stands on her feel all day on concrete), pt states she has tried doing exercises, does not go bare foot in the house, purchased inserts for work shoes. (has helped and pain has gotten better), chart updated, xrays? Insurance Providers [facility] Health Member Patient Patient Patient Patient Patient Subscriber Subscriber Subscriber Group Insurance Plan Plan Plan Plan ID Relationship Address Phone Name Date of ID Name Date of No Type Insurance Insurance Insurance Coverage to Subscriber Address Phone Name Dates SELF PAY [address] STREET SELF PAY self CLAY 1990 [place] [id number] INSURANCE MEDICAID [place] self [place]LAY 1990 [id number] [place] [employer] [facility] [id number]
--- OUTSIDE RECORDS SUMMARY | 2021-11-21 12:41 | XMS_ITS | Encounter Summary ---
:1990 Author Organization [facility] Address [address] [place] [address] Care Team Providers Name Role Phone Edenilson Boogie PA-C Primary Care Provider [phone] Encounter Details Date Type Department Care Team Description 08/18/2019 Lab Requisition [facility] Outr Resulting Lab, Pathology & Laboratory Provider [facility] [address] [place] [address] Social History Tobacco Use Types Packs/Day Years Used Date Never Assessed Sex Assigned at Date Recorded Not on file documented as of this encounter Plan of Treatment Not on filedocumented as of this encounter Procedures Procedure Name Priority Date/Time Associated Diagnosis Comme nts HOLD SST Today 08/18/2019 10:20 Results for this EDT procedure are i n the results section. HEPATITIS C AB W Today 08/18/2019 10:20 Results for this REFLEX TO HCV RNA EDT procedure are in BY PCR the results section. HEPATITIS B SURFACE Today 08/18/2019 10:20 Resu lts for this ANTIGEN EDT procedure are i n the results section. documented in this encounter Results HOLD SST (08/18/2019 10:20 EDT) Pathologist Sig nature Hold Hold [facility] Specimen Blood - Venous blood (substance) Performing Organization Address [facility]/ZIP Code Phon e Number [facility] [address] [place] [address] SERVICES HEPATITIS B SURFACE ANTIGEN (08/18/2019 10:20 EDT) Pathologist Sig nature Hep B Surface Ag Negative Negative [facility] Specimen Blood - Venous blood (substance) Performing Organization Address City/[facility]/ZIP Code Phon e Number [facility] [address] [place] [address] SERVICES HEPATITIS C AB W REFLEX TO HCV RNA BY PCR (08/18/2019 10:20 EDT) Pathologist Sig nature Hep C Antibody Negative Negative [facility] Specimen Blood - Venous blood (substance) Performing Organization Address City/State/ZIP Code Phon e Number [facility] [address] [place] [address] SERVICES documented in this encounter Visit Diagnoses Not on filedocumented in this encounter Additional Health Concerns Infection Onset Date Last Indicated Resolved Time COVID-19 03/30/2021 03/30/2021 04/19/2021 22:15 EST documented as of this encounter Care Teams Software Validation Technician Relationship Specialty Start Date End Date Edenilson Boogie PA-C PCP - General 04/30/16 documented as of this encounter
--- OUTSIDE RECORDS SUMMARY | 2021-11-21 12:41 | XMS_ITS | Encounter Summary ---
:1990 Author Organization [facility] Address [address] [place] [address] Care Team Providers Name Role Phone Edenilson Boogie PA-C Primary Care Provider [phone] Encounter Details Date Type Department Care Team Description 02/14/2020 Lab Requisition [facility] Yue Rodriguez for other Pathology & Kortney [facility] general examination Laboratory Medicine [address] [place], [place] [address] [facility] [address] [place] [address] Social History Tobacco Use Types Packs/Day Years Used Date Never Assessed Sex Assigned at Date Recorded Not on file documented as of this encounter Plan of Treatment Not on filedocumented as of this encounter Procedures Procedure Name Priority Date/Time Associated Diagnosis Comme nts SCREEN TEST Today 02/14/2020 9:00 EST Encounter for ot her Results for this general examination procedur e are in the results section. documented in this encounter Results SCREEN TEST (02/14/2020 9:00 EST) Screen Test NEGATIVEComment: [facility] MEDICAL RESULTS CALLED TO [facility] ZENAIDA HIGGINBOTHAM AT [facility] 02/14/2020 @ 21:19 AND FAXED TO [phone]. Specimen Blood - Venous blood (substance) Performing Organization Address City/State/ZIP Code Phon e Number [facility] [address] [facility] [place] [address] documented in this encounter Visit Diagnoses Diagnosis Encounter for other general examination documented in this encounter Additional Health Concerns Infection Onset Date Last Indicated Resolved Time COVID-19 03/30/2021 03/30/2021 04/19/2021 22:15 EST documented as of this encounter Care Teams Wan Support Specialist Relationship Specialty Start Date End Date Edenilson Boogie PA-C PCP - General 04/30/16 documented as of this encounter
--- OUTSIDE RECORDS SUMMARY | 2021-11-21 12:41 | XMS_ITS | Encounter Summary ---
:1990 Author Organization [facility] Address [address] [place] [address] Care Team Providers Name Role Phone Edenilson Boogie PA-C Primary Care Provider Encounter Details Date Type Department Care Team Description 08/18/2019 Lab Requisition [facility] Outr Resulting Lab, Pathology & Laboratory Provider [facility] [address] [place], [place] [id number] Social History Tobacco Use Types Packs/Day Years Used Date Never Assessed Sex Assigned at Date Recorded Not on file documented as of this encounter Plan of Treatment Not on filedocumented as of this encounter Procedures Procedure Name Priority Date/Time Associated Comments Diagnosis CHLAMYDIA/N. Routine 08/18/2019 12:42 Results for this GONORRHOEAE AMPLIFIED EDT proced ure are in RNA the results section. documented in this encounter Results CHLAMYDIA/N. GONORRHOEAE AMPLIFIED RNA (08/18/2019 12:42 EDT) Pathologist Sig nature Gonococcus Result Negative Negative [facility] Chlamydia Result Negative Negative [facility] Specimen Swab - Entire wall of cervix (body struc ture) Performing Organization Address City/State/ZIP Code Phon e Number [facility] [address] [place] [address] SERVICES documented in this encounter Visit Diagnoses Not on filedocumented in this encounter Additional Health Concerns Infection Onset Date Last Indicated Resolved Time COVID-19 03/30/2021 03/30/2021 04/19/2021 22:15 EST documented as of this encounter Care Teams Digital Research Analyst Relationship Specialty Start Date End Date Edenilson Boogie PA-C PCP - General 04/30/16 documented as of this encounter
--- OUTSIDE RECORDS SUMMARY | 2021-11-21 12:41 | XMS_ITS | Encounter Summary ---
:1990 Author Organization [facility] Address [address] [place] [address] Care Team Providers Name Role Phone Unknown, Provider Primary Care Provider Encounter Details Date Type Department Care Team Description 02/19/2013 Results Only [facility] Papa Arrieta, TOOL POLISHING MACHINE OPERATOR [address] [place], [place] [phone] (Wo rk) Social History Tobacco Use Types Packs/Day Years Used Date Never Assessed Sex Assigned at Date Recorded Not on file documented as of this encounter Plan of Treatment Not on filedocumented as of this encounter Procedures Procedure Name Priority Date/Time Associated Diagnosis Comme nts PAP TEST- RESULT Routine 02/19/2013 0:00 EST Resu lts for this ONLY procedure are i n the results section. documented in this encounter Results PAP TEST- RESULT ONLY (02/19/2013 0:00 EST) Pathology Report: CYTOPATHOLOGY REPORT [facility] Reports generated via electronic interface contain neisha ginal data; however they are lacking the format of the original re port. Caution should be taken when reading/interpreting unfo rmatted reports. Name: ? CLAY PINTO ? Accession #: ? [id number] : ? 1990 (Age: 22) ??F ?Collect Date: ? 01/23 Location: ? [facility] ? Receive Date : ? 02/23/2013 Provider: ?PAPA CHAPA TOOL POLISHING MACHINE OPERATOR Copy to: ? Specimen/Source: ?Pap Test, En docervix, ThinPrep Imaging System with manual evaluation Last Menstrual Period: ? 02/08/13 ? SPECIMEN ADEQUACY ? Satisfactory for Evaluation - transformation zone component present GENERAL CATEGORIZATION ? Negative for Intraepithelial Lesion or Malignan cy INTERPRETATION ? Shift in margarita present suggestive of bacterial vaginosis. ? Document reviewed and electronically signed by: ? TI Fox(ASCP) ? Report Date: ??02/25/2013 10:16 End of Report Specimen Performing Organization Address City/State/ZIP Code Phon e Number [facility] [address] [place] [address] SERVICES [facility] [address] [place] [address] documented in this encounter Visit Diagnoses Not on filedocumented in this encounter Care Teams Patient Account Analyst Relationship Specialty Start Date End Date Unknown, Provider, PCP - General 07/24/11 04/29/16 documented as of this encounter
--- OUTSIDE RECORDS SUMMARY | 2021-11-21 12:41 | XMS_ITS | Encounter Summary ---
:[address] [facility] Address [address] [place] [address] Care Team Providers Name Role Phone Unknown, Provider Primary Care Provider Encounter Details Date Type Department Care Team Description 07/23/2011 Results Only [facility] Jarad Gonzalez MD Laboratory Services - [address],[place] [address] [place] [phone] (Wo rk) Social History Tobacco Use Types Packs/Day Years Used Date Never Assessed Sex Assigned at Date Recorded Not on file documented as of this encounter Plan of Treatment Not on filedocumented as of this encounter Procedures Procedure Name Priority Date/Time Associated Diagnosis Comme nts PAP TEST- RESULT Routine 07/23/2011 0:00 EDT Resu lts for this ONLY procedure are i n the results section. documented in this encounter Results PAP TEST- RESULT ONLY (07/23/2011 0:00 EDT) Pathology Report: CYTOPATHOLOGY REPORT [facility] Reports generated via electronic interface contain neisha ginal data; however they are lacking the format of the original re port. Caution should be taken when reading/interpreting unfo rmatted reports. Name: ? CLAY PINTO ? Accession #: ? [id number] : ? 1990 (Age: 20) ??F ?Collect Date: ? 050 03/2011 Location: ? [facility] ? Receive Date : ? 07/24/2011 Provider: ?ANTONIA GONZALEZ MD Copy to: ? Specimen/Source: ? Pap Test, Cervix/Endocervix, ThinPrep Imaging System with manual evaluation Last Menstrual Period: ? 07/06/11 Hormonal/Contraceptive Status: ? Yes: pill ? SPECIMEN ADEQUACY ? Satisfactory for Evaluation - transformation zone component absent GENERAL CATEGORIZATION ? Negative for Intraepithelial Lesion or Malignan cy INTERPRETATION ? Shift in margarita present suggestive of bacterial vaginosis. ? Document reviewed and electronically signed by: ? TI Fox(ASCP) ? Report Date: ??07/25/2011 12:07 End of Report Specimen Performing Organization Address City/State/ZIP Code Phon e Number [facility] [address] [place] [address] SERVICES [facility] [address] [place] [address] documented in this encounter Visit Diagnoses Not on filedocumented in this encounter Care Teams Director Of Student Life Relationship Specialty Start Date End Date Unknown, Provider, PCP - General 07/24/11 04/29/16 documented as of this encounter
--- OUTSIDE RECORDS SUMMARY | 2021-11-21 12:41 | XMS_ITS | Encounter Summary ---
:1990 Author Organization [facility] Address [address] [place] [address] Care Team Providers Name Role Phone Unknown, Provider Primary Care Provider Encounter Details Date Type Department Care Team Description 03/05/2016 Results Only [facility]- Víctor Draper CNM [phone] [place], [place] [id number] (Wo rk) Social History Tobacco Use Types Packs/Day Years Used Date Never Assessed Sex Assigned at Date Recorded Not on file documented as of this encounter Plan of Treatment Not on filedocumented as of this encounter Procedures Procedure Name Priority Date/Time Associated Diagnosis Comme nts PAP TEST- RESULT Routine 03/05/2016 0:00 EST Resu lts for this ONLY procedure are i n the results section. documented in this encounter Results PAP TEST- RESULT ONLY (03/05/2016 0:00 EST) Pathology Report: CYTOPATHOLOGY REPORT [facility] Reports generated via electronic interface contain neisha ginal data; SERVICES however they are lacking the format of the original re port. Caution should be taken when reading/interpreting unfo rmatted reports. Name: ? CLAY PINTO ? Accession #: ? [id number] : ? 1990 (Age: 25) ??F ?Collect Date: ? 02/21 Location: ? [facility] ? Receive Date : ? 03/06/2016 Provider: ?VÍCTOR MOSES CNM Copy to: ?ANDER NIETO PAC ? Specimen/Source: ? Pap Test, Cervix, ThinPrep Imaging System with manual evaluation Last Menstrual Period: ? 02/04/2016 ? SPECIMEN ADEQUACY ? Satisfactory for Evaluation - transformation zone component present GENERAL CATEGORIZATION ? Epithelial Cell Abnormality INTERPRETATION ? Squamous Cell Abnormality - High grade sq uamous intraepithelial lesion (HSIL). EDUCATIONAL NOTES/RECOMMENDATIONS ? [facility] recommends foll owing ASCCP's 2012 Updated Consensus Guidelines for the Management of Abnormal Cervical Cancer Screening T ests and Cancer Precursors (JLGTD, 2013; 17(5):S1-S27). ??Conse nsus guidelines are available online at www.asccp.org. ? Document reviewed and electronically signed by: ? CLEMENTE WESTFALL MD ? Report Date: ??03/11/2016 14:03 End of Report Specimen Performing Organization Address City/State/ZIP Code Phon e Number [facility] [address] [place] [address] SERVICES documented in this encounter Visit Diagnoses Not on filedocumented in this encounter Care Teams Grave Cleaner Relationship Specialty Start Date End Date Unknown, Provider, PCP - General 07/24/11 04/29/16 documented as of this encounter
--- OUTSIDE RECORDS SUMMARY | 2021-11-21 12:41 | XMS_ITS | Encounter Summary ---
:1990 Author Organization [facility] Address [address] [place] [address] Care Team Providers Name Role Phone Edenilson Boogie PA-C Primary Care Provider [phone] Encounter Details Date Type Department Care Team Description 08/18/2019 Lab Requisition [facility] Outr Resulting Lab, Pathology & Laboratory Provider [facility] [address] [place], [place] [address] Social History Tobacco Use Types Packs/Day Years Used Date Never Assessed Sex Assigned at Date Recorded Not on file documented as of this encounter Plan of Treatment Not on filedocumented as of this encounter Procedures Procedure Name Priority Date/Time Associated Comments Diagnosis HIV 1/2 ANTIGEN AND Routine 08/18/2019 10:20 Resu lts for this ANTIBODY, 4TH EDT procedure are in GENERATION the results section. documented in this encounter Results HIV 1/2 ANTIGEN AND ANTIBODY, 4TH GENERATION (08/18/2019 10:20 EDT) HIV 1 and 2 Negative Negative [facility] Antibody/p24 Comment: LABORATORY Antigen, 4th SERVICES Generation If acute HIV-1 infection is suspected in a high risk ??patient, submit plasma specimen for HIV-1 RNA quantitation test. Fourth Generation assay performed on the [employer]a ur. Specimen Blood - Venous blood (substance) Performing Organization Address City/State/ZIP Code Phon e Number [facility] [address] [place] [address] SERVICES documented in this encounter Visit Diagnoses Not on filedocumented in this encounter Additional Health Concerns Infection Onset Date Last Indicated Resolved Time COVID-19 03/30/2021 03/30/2021 04/19/2021 22:15 EST documented as of this encounter Care Teams Manager Perioperative Relationship Specialty Start Date End Date Edenilson Boogie PA-C PCP - General 04/30/16 documented as of this encounter
--- OUTSIDE RECORDS SUMMARY | 2021-11-21 12:41 | XMS_ITS | Encounter Summary ---
:1990 Author Organization [facility] Address [address] [place] [address] Care Team Providers Name Role Phone Edenilson Boogie PA-C Primary Care Provider [phone] Encounter Details Date Type Department Care Team Description 02/14/2020 Lab Requisition [facility] Yue Rodriguez for Pathology & Kortney [facility] general adult Laboratory Medicine [address] [facility] medical examination - [place], [place] without abnormal [address] [facility] [address] [place] [address] Social History Tobacco Use Types Packs/Day Years Used Date Never Assessed Sex Assigned at Date Recorded Not on file documented as of this encounter Plan of Treatment Not on filedocumented as of this encounter Procedures Procedure Name Priority Date/Time Associated Diagnosis Comme nts COVID-19 TEST [facility] Today 02/14/2020 8:55 EST Encounter for LAB PCR general adult medical examination without abnormal findings COVID-19 TESTING Today 02/14/2020 8:55 EST Encounter for Res ults for this general adult procedure are in medical examination the resu lts without abnormal section. findings documented in this encounter Results COVID-19 TEST [facility] LAB PCR (02/14/2020 8:55 EST) Specimen Swab - Entire nasopharynx (body structur e) Performing Organization Address City/State/ZIP Code Phon e Number [facility] [address] [place] [address] SERVICES COVID-19 TESTING (02/14/2020 8:55 EST) COVID-19 rt-PCR Negative Negative [facility] MEDICAL Result Comment: CENTER LABORATORY This test has not been FDA c leared or approved. This test has been authorized by FDA under an EUA for use by authorized laboratories. This test has been authorized only for detection of nucleic acid fro SERVICES m 2019-nCoV, not for any oth er viruses or pathogens. This test is only authorized for the duration of the declaration that circumstances exist justifying the authorization of emergency use of in vitro d iagnostic tests for detectio n and/or diagnosis of 2019-nCoV under section 564(b)(1) of Act, 21 U.S.C ?? 360bbb-3(b) (1), unless the authorization is terminated or revoked sooner. Negative results do not prec lude 2019-nCoV infection and should not be used as the sole basis for treatment or other patient management decisions. Negative results must be combined with clinical observa tions, patient history, and epidemiological informatio n. Performed on the [employer] Fusion instrument Performing Lab [place] [facility] Lab [facility] SERVICES Specimen Swab Performing Organization Address City/State/ZIP Code Phon e Number [facility] [address] [place] [address] SERVICES documented in this encounter Visit Diagnoses Diagnosis Encounter for general adult medical exam ination without abnormal findings Unspecified general medical examination documented in this encounter Additional Health Concerns Infection Onset Date Last Indicated Resolved Time COVID-19 03/30/2021 03/30/2021 04/19/2021 22:15 EST documented as of this encounter Care Teams Major Gifts Officer Relationship Specialty Start Date End Date Edenilson Boogie PA-C PCP - General 04/30/16 documented as of this encounter
--- OUTSIDE RECORDS SUMMARY | 2021-11-21 12:41 | XMS_ITS | Encounter Summary ---
:1990 Author Organization [facility] Address [address] [place] [address] Care Team Providers Name Role Phone Unknown, Provider Primary Care Provider Encounter Details Date Type Department Care Team Description 03/28/2016 Hospital Encounter [facility] - S Unknown, Pro viderClaudio MD [address] [facility] [phone] [place] [address] (Work) [phone] Social History Tobacco Use Types Packs/Day Years Used Date Never Assessed Sex Assigned at Date Recorded Not on file documented as of this encounter Discharge Disposition Disposition Code Departure Means Destination Home or Self Custodial documented in this encounter Plan of Treatment Not on filedocumented as of this encounter Visit Diagnoses Not on filedocumented in this encounter Care Teams Social Service Technician Relationship Specialty Start Date End Date Unknown, Provider, PCP - General 07/24/11 documented as of this encounter
--- OUTSIDE RECORDS SUMMARY | 2021-11-21 12:41 | XMS_ITS | Encounter Summary ---
:1990 Author Organization [facility] Address [address] [place] [address] Care Team Providers Name Role Phone Edenilson Boogie PA-C Primary Care Provider [phone] Encounter Details Date Type Department Care Team Description 08/18/2019 Lab Requisition [facility] Outr Resulting Lab, Pathology & Laboratory Provider [facility] [address] [place], [place] [address] Social History Tobacco Use Types Packs/Day Years Used Date Never Assessed Sex Assigned at Date Recorded Not on file documented as of this encounter Plan of Treatment Not on filedocumented as of this encounter Procedures Procedure Name Priority Date/Time Associated Diagnosis Comme nts RUBELLA IGG Routine 08/18/2019 10:20 Results for this ANTIBODY EDT procedure are i n the results section. VARICELLA IGG Routine 08/18/2019 10:20 Results fo r this ANTIBODY EDT procedure are i n the results section. documented in this encounter Results VARICELLA IGG ANTIBODY (08/18/2019 10:20 EDT) Varicella IgG Ab PositiveComment: See Note [facility] Presence of LABORATORY SERVICES detectable Varicella Zoster virus IgG antibodies. Specimen Blood - Venous blood (substance) Performing Organization Address City/[facility]/ZIP Code Phon e Number [facility] [address] [place] [address] SERVICES RUBELLA IGG ANTIBODY (08/18/2019 10:20 EDT) Rubella IgG Ab PositiveComment: See Note [facility] Positive for IgG LABORATORY SERVICES antibodies to Rubella virus. Specimen Blood - Venous blood (substance) Performing Organization Address City/[facility] Code Phon e Number [facility] [address] [place] [address] SERVICES documented in this encounter Visit Diagnoses Not on filedocumented in this encounter Additional Health Concerns Infection Onset Date Last Indicated Resolved Time COVID-19 03/30/2021 03/30/2021 04/19/2021 22:15 EST documented as of this encounter Care Teams Vasc Tech Relationship Specialty Start Date End Date Edenilson Boogie PA-C PCP - General 04/30/16 documented as of this encounter
== END 2021-11-21 12:39 | disposition home or self-care (01) ==
LOC: LBN 12:38
PROVIDERS: PCP Physician Assistant Medical; Visit Provider Nurse Practitioner Women's Health
DX: Z12.4 Encounter for screening for malignant neoplasm of cervix (principal); Z11.51 Encounter for screening for human papillomavirus (HPV)
CPT/HCPCS: 88142; 87624

== ENCOUNTER 2022-09-27 15:19 | Outpatient (REF) | payer MEDICAID, SELFPAY ==
[2022-09-27 15:48] LABS: Abs Immature Grans 0.02 10^3/uL (0.0-0.06); Absolute Basophil Count 0.06 10^3/uL (0.0-0.2); Absolute Eosinophil Count 0.35 10^3/uL (0.0-0.7); Absolute Lymphocyte Count 2.61 10^3/uL (1.2-3.4); Absolute Monocyte Count 0.41 10^3/uL (0.1-0.8); Absolute Neutrophil Count 5.89 10^3/uL (1.2-6.7); Basophils % 0.6; Eosinophils % 3.7; HGB 13.2 g/dL (11.2-15.7); Immature Grans % 0.2; Lymphocytes % 27.9; MCH 31.3 pg (27.0-33.0); MCV 95 fL (80-95); Monocytes % 4.4; Neutrophils % 63.2; Platelet Count 387 10^3/uL (130-400); RBC 4.22 10^6/uL (3.93-5.22); RDW 12.7 % (11.7-14.6); RDW-SD 44.6 fL; WBC 9.34 10^3/uL (4.4-10.8)
[2022-09-27 16:05] LABS: ALT 26 U/L (14-59); AST 28 U/L (15-37); Albumin 4.1 g/dL (3.4-5.0); Alkaline Phosphatase 106 U/L (46-116); Anion Gap 8.1 mmol/L (3-11); BUN 10 mg/dL (7-18); Bilirubin, Total 0.4 mg/dL (0.2-1.0); CO2 27.9 mmol/L (21.0-32.0); CREATININE 0.9 mg/dL (0.55-1.02); Calcium 9.2 mg/dL (8.5-10.1); Calculated LDL 83 mg/dL (<100); Chloride 105 mmol/L (98-107); Cholesterol 170 mg/dL (<200); Estimated GFR 87.11 (mL/min/1.73m2); Glucose 98 mg/dL (74-106); HDL Cholesterol 66 mg/dL (40-60); Potassium 4.6 mmol/L (3.5-5.1); Sodium 141 mmol/L (136-145); TSH (W/Ref FT4) 0.43 uIU/mL (0.36-3.74); Total Protein 7.5 g/dL (6.4-8.2); Triglyceride 105 mg/dL (<150)
== END 2022-09-27 15:20 | disposition home or self-care (01) ==
LOC: NCHCN 15:19
PROVIDERS: PCP Physician Assistant Medical; Visit Provider Nurse Practitioner Family
DX: R94.6 Abnormal results of thyroid function studies (principal); L29.8 Other pruritus; R59.0 Localized enlarged lymph nodes; Z83.49 Family history of other endocrine, nutritional and metabolic diseases; Z13.220 Encounter for screening for lipoid disorders
CPT/HCPCS: 80053; 80061; 84443; 85025

== ENCOUNTER → 2023-04-17 12:01 | Outpatient (CLI) | payer MEDICAID, SELFPAY ==
--- NOTE | 2023-04-17 | DI.US_ITS ---
Exam(s) US ABD PELV TRANSVAG NON-OB EXAM: US ABD PELV TRANSVAG NON-OB CLINICAL HISTORY: ABD PAIN R10.9 RUQ PAIN, BILAT CVA TENDERNESS, PELVIC PAIN TECHNIQUE: Ultrasound abdomen performed using standard protocol. COMPARISON: CT RENAL COLIC WO CONTRAST from 08/27/2012 FINDINGS: ABDOMEN ABDOMINAL AORTA AND IVC: Visualized portions normal caliber. PANCREAS: Normal where visualized. LIVER: Normal. Hepatopedal flow in the Portal Vein. The liver measures 17.2 cm long. GALLBLADDER:No evidence of cholelithiasis. No evidence of wall thickening. No pericholecystic fluid i dentified. BILIARY SYSTEM: Common bile duct measures < 7 mm. No intrahepatic biliary ductal dilation. ROSARIO'S SIGN: Negative. KIDNEYS: Kidneys are symmetric in size. No evidence of renal calculi. No evidence of hydronephrosis. No renal mass or cyst identified. SPLEEN: Not enlarged. ASCITES: None seen. PELVIC: UTERUS: Position: Anteverted. Size: 1.5 long by 3.9 AP by 4.2 transverse cm Endometrium: 0.7 cm. Normal for patient's menstrual status. Myometrium: Unremarkable. Cervix: Unremarkable. OVARIES: Right: 3.5 x 2.7 x 2.4 cm Cyst or mass: No suspicious cysts or masses are seen. 1.7 x 2.1 x 2.0 cm follicular cyst. Left: 2.2 x 1.9 x 1.8 cm Cyst or mass: No suspicious cysts or masses are seen. DOPPLER: Color: Symmetric and uniform flow to both ovaries. No hyperemia. CUL-DE-SAC: Free fluid: None. IMPRESSION: Normal sonographic appearance of the upper abdomen and pelvis. DATA REPOSITORY:
== END ==
PROVIDERS: PCP Physician Assistant Medical; Visit Provider Physician Assistant Medical
DX: R10.9 Unspecified abdominal pain (principal)
CPT/HCPCS: 76700; 76830; 76856

== ENCOUNTER 2023-04-17 12:46 | Outpatient (REF) | payer MEDICAID, SELFPAY ==
[2023-04-17 14:48] LABS: Abs Immature Grans 0.02 10^3/uL (0.0-0.06); Absolute Basophil Count 0.07 10^3/uL (0.0-0.2); Absolute Eosinophil Count 0.19 10^3/uL (0.0-0.7); Absolute Lymphocyte Count 2.61 10^3/uL (1.2-3.4); Absolute Monocyte Count 0.44 10^3/uL (0.1-0.8); Absolute Neutrophil Count 5.56 10^3/uL (1.2-6.7); Basophils % 0.8; Eosinophils % 2.1; HCT 37.8 % (36.0-46.0); HGB 12.7 g/dL (11.2-15.7); Immature Grans % 0.2; Lymphocytes % 29.4; MCH 31.6 pg (27.0-33.0); MCHC 33.6 % (32.0-36.0); MCV 94 fL (80-95); Monocytes % 4.9; Neutrophils % 62.6; Platelet Count 369 10^3/uL (130-400); RBC 4.02 10^6/uL (3.93-5.22); RDW 12.7 % (11.7-14.6); RDW-SD 43.9 fL; WBC 8.89 10^3/uL (4.4-10.8)
[2023-04-17 15:07] LABS: Bacteria Few HPF (Negative); C & S Indicated? C&S Done As Ordered; Casts Negative LPF (Negative); Crystals Many Amorphous HPF (Negative); Epithelial Cells Moderate HPF (Negative); Mucus Negative (Negative); RBC Negative HPF (0-2); WBC 0-2 HPF (0-5)
[2023-04-17 15:23] LABS: ALT 25 U/L (14-59); AST 18 U/L (15-37); Albumin 4.2 g/dL (3.4-5.0); Alkaline Phosphatase 78 U/L (46-116); Anion Gap 9.9 mmol/L (3-11); BUN 13 mg/dL (7-18); Bilirubin, Total 0.7 mg/dL (0.2-1.0); CO2 28.1 mmol/L (21.0-32.0); CREATININE 0.7 mg/dL (0.55-1.02); Chloride 103 mmol/L (98-107); Estimated GFR 117.04 (mL/min/1.73m2); Glucose 103 mg/dL (74-106); Lipase 36 U/L (16-77); Potassium 4.5 mmol/L (3.5-5.1); Sodium 141 mmol/L (136-145); Total Protein 7.2 g/dL (6.4-8.2)
[2023-04-17 15:29] LABS: Calcium 9.6 mg/dL (8.5-10.1)
== END 2023-04-17 12:47 | disposition home or self-care (01) ==
LOC: LBN 12:46
PROVIDERS: PCP Physician Assistant Medical; Visit Provider Physician Assistant Medical
DX: R10.9 Unspecified abdominal pain (principal); R82.998 Other abnormal findings in urine
CPT/HCPCS: 80053; 83690; 81015; 85025; 87086

== ENCOUNTER 2023-09-09 17:55 | Outpatient (REF) | payer MEDICAID, SELFPAY | END 2023-09-09 17:56 | disposition home or self-care (01) | LOC: LBN 17:55 | PROVIDERS: PCP Physician Assistant Medical; Visit Provider Family Medicine | DX: J02.9 Acute pharyngitis, unspecified (principal) | CPT/HCPCS: 87070 ==

== ENCOUNTER 2024-02-24 01:09 | Outpatient (CLI) | payer MEDICAID, SELFPAY ==
--- NOTE | 2024-02-24 07:00 | DI.RAD_ITS ---
Exam(s) XR FOOT LT COMPLETE EXAM: XR FOOT LT COMPLETE CLINICAL HISTORY: Left foot pain,m79.672. TECHNIQUE: 2D digital imaging was performed of the left foot. Three images were obtained. AP, obli que and lateral views were obtained. COMPARISON: No priors for comparison. FINDINGS: BONES: No acute fracture is present. No bony destructive lesion is seen. There is a small plantar kira caneal spur. JOINTS: No dislocation present. The joint spaces are well maintained. SOFT TISSUE: Normal. IMPRESSION: Small plantar calcaneal spur. DATA REPOSITORY: RADIATION DOSE DELIVERED:
--- NOTE | 2024-02-24 07:00 | DI.RAD_ITS ---
Exam(s) XR FOOT RT COMPLETE EXAM: XR FOOT RT COMPLETE CLINICAL HISTORY: Right foot pain,M79.671. TECHNIQUE: 2D digital imaging was performed. Three views. COMPARISON: No exams were available for comparison FINDINGS: BONES: No acute fracture is present. No bony destructive lesion is seen. Small plantar calcaneal spu r. JOINTS: No dislocation present. No significant degenerative changes SOFT TISSUE: Normal. IMPRESSION: Small plantar calcaneal spur. DATA REPOSITORY: RADIATION DOSE DELIVERED:
== END 2024-02-24 01:29 ==
LOC: DI 01:10
PROVIDERS: PCP Physician Assistant Medical; Visit Provider Podiatrist
DX: M77.32 Calcaneal spur, left foot (principal); M77.31 Calcaneal spur, right foot
CPT/HCPCS: 73630

== ENCOUNTER 2024-11-16 15:59 | Outpatient (REF) | payer MEDICAID, SELFPAY ==
[2024-11-16 19:19] LABS: HCT 38.1 % (36.0-46.0); HGB 12.7 g/dL (11.2-15.7); MCH 31.4 pg (27.0-33.0); MCHC 33.3 % (32.0-36.0); MCV 94 fL (80-95); MPV 10.1 fL (8.0-11.0); Platelet Count 356 10^3/uL (130-400); RBC 4.04 10^6/uL (3.93-5.22); RDW 12.4 % (11.7-14.6); RDW-SD 42.9 fL; WBC 8.08 10^3/uL (4.4-10.8)
[2024-11-16 19:34] LABS: Hemoglobin A1C 5.6 % (<5.7)
[2024-11-16 19:45] LABS: ALT 32 U/L (14-59); AST 22 U/L (15-37); Albumin 3.9 g/dL (3.4-5.0); Alkaline Phosphatase 99 U/L (46-116); Anion Gap 9.3 mmol/L (3-11); BUN 12 mg/dL (7-18); Bilirubin, Total 0.5 mg/dL (0.2-1.0); CO2 28.7 mmol/L (21.0-32.0); Calcium 9.4 mg/dL (8.5-10.1); Chloride 103 mmol/L (98-107); Estimated GFR 98.48 (mL/min/1.73m2); Glucose 107 mg/dL (74-106); Potassium 4.2 mmol/L (3.5-5.1); Sodium 141 mmol/L (136-145); TSH (W/Ref FT4) 0.71 uIU/mL (0.36-3.74); Total Protein 7.3 g/dL (6.4-8.2)
== END 2024-11-16 16:00 | disposition home or self-care (01) ==
LOC: NCHCN 15:59
PROVIDERS: PCP Physician Assistant Medical; Visit Provider Family Medicine
DX: R53.83 Other fatigue (principal); Z13.1 Encounter for screening for diabetes mellitus
CPT/HCPCS: 80053; 85027; 83036; 84443

== ENCOUNTER 2024-12-15 03:37 | Outpatient (CLI) | payer MEDICAID, SELFPAY ==
--- NOTE | 2024-12-15 | DI.US_ITS ---
Exam(s) US ABDOMEN LIMITED EXAM: US ABDOMEN LIMITED CLINICAL HISTORY: RUQ PAIN R10.11 TECHNIQUE: Ultrasound abdomen performed using standard protocol. COMPARISON: US US ABD PELV TRANSVAG NON-OB from 04/17/2023 FINDINGS: PANCREAS: Normal where visualized. LIVER: Normal. Hepatopetal flow in the Portal Vein. The liver measures in 18 cm length. No evidence of a hepatic mass. GALLBLADDER: No evidence of cholelithiasis. No evidence of wall thickening. No pericholecystic fluid identified. BILIARY SYSTEM: Common bile duct measures < 7 mm. No intrahepatic biliary ductal dilation. ROSARIO'S SIGN: Negative. RIGHT KIDNEY: Kidney is normal in size. No evidence of renal calculi. No evidence of hydronephrosis. No renal mass or cyst identified. ASCITES: None seen. IMPRESSION: Normal sonographic appearance of the upper abdomen. DATA REPOSITORY:
== END 2024-12-15 03:57 ==
LOC: DI 03:37
PROVIDERS: PCP Physician Assistant Medical; Visit Provider Nurse Practitioner Family
DX: E10.11 Type 1 diabetes mellitus with ketoacidosis with coma (principal)
CPT/HCPCS: 76705